=== PATIENT | female | born 1955 | race Caucasian/White ===

== ENCOUNTER → 2016-08-09 | Outpatient (REF) | payer BC ==
[~2016-08-09] MED LIST: AMLO10TA82 PO; AMOX-358 PO; ASPI-860 PO; ATOR20TA PO; BENA20TA2 PO; GLYB6TAB3 PO; LOVA20TA2 PO; METF1000 PO; METO200T32 PO; SMV20T PO
== END ==
LOC: LAB 11:03
PROVIDERS: ATTEND Family Medicine
DX: E11.9 Type 2 diabetes mellitus without complications (principal)
CPT/HCPCS: 83036